=== PATIENT | female | born 1985 | race Caucasian/White ===

== ENCOUNTER 2017-02-18 18:55 | Emergency (ER) | END 2017-02-19 00:09 | disposition home or self-care (01) | DX: O21.9 Vomiting of pregnancy, unspecified (principal); O99.89 Other specified diseases and conditions complicating pregnancy, childbirth and the puerperium; R05 Cough; R10.2 Pelvic and perineal pain | CPT/HCPCS: 36415; 76805; 80053; 81001; 83690; 84702; 85025; 86900; 86901; 96374; 96375; J0696; J2765; J7030; Z7502; Z7610 ==